=== PATIENT | male | born 1965 | race Caucasian/White ===

== ENCOUNTER 2024-07-03 17:29 | Emergency (ER) | payer OTHER, SELFPAY ==
[2024-07-03 17:34] VITALS: BP 165/111; PULSE 100; RESP 20; TEMP 36.6; O2SAT 100
--- NOTE | 2024-07-03 17:39 | ED.UPPEXIN ---
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 Laceration is to the palmar side of the base of thumb. States the site continues to bleed. Has a bandaid with neosporin and coban in place. Pt has been taking aspirin this week for dental pain. Denies decreased ROM, numbness, tingling or weakness to the thumb. Does not go to the doctor. Related Data Allergies Allergy/AdvReac Type Severity Reaction Status Date / Time No Known Allergies Allergy Unverified 02/06/15 14:09 Review of Systems Review of Systems: CONSTITUTIONAL: Denies body aches, fever, chills, or sweats. EYES: Denies visual changes, redness, or discharge. ENT: Denies rhinorrhea, congestion CARDIOVASCULAR: Denies chest pain, palpitations, or edema. RESPIRATORY: Denies cough or dyspnea. GASTROINTESTINAL: Denies abdominal pain, nausea, vomiting, or diarrhea. SKIN: right hand laceration MUSCULOSKELETAL: Denies back pain, joint pain, or myalgia. NEUROLOGIC: Denies headache, numbness, tingling, or weakness. [facility] Past Medical History Medical History (Updated 07/03/24 @ 18:33 by Marisabel Smith APRN) Patient denies medical problems Comments At time of signature, I have reviewed and agree with nursing past medical, surgical, social and family history unless otherwise noted. Please see nursing chart for further information. There is no relevant family history pertinent to the presenting complaint Exam Narrative: GENERAL: Well-appearing HEAD: Normocephalic, atraumatic. EYES: conjunctivae clear, and EOMI. ENT: Mucous membranes moist. Oropharynx without edema, erythema or lesions. NECK: Supple. CHEST: Even, unlabored SKIN: Warm, dry. right hand palmar surface of 1st metacarpal with approx 1cm irregular skin avulsion, superficial, active bleeding. CMS intact to hand, digits. NEURO: Alert and oriented x3. Course Course Emergency Course: Patient is aware of diagnosis, understands and agrees to treatment plan. Anticipatory guidance given. Patient agrees to follow-up as directed and is aware of reasons to seek care at the emergency department. Portions of this record may have been created with voice recognition software Level of Care: Express Care Visit Vital Signs Vital signs: Vital Signs Temperature 97.9 F 07/03/24 17:34 Pulse Rate 100 07/03/24 17:34 Respiratory Rate 20 07/03/24 17:34 Blood Pressure 165/111 H 07/03/24 17:34 Pulse Oximetry 100 07/03/24 17:34 Oxygen Delivery Room Air 07/03/24 17:34 Temperature 97.9 F 07/03/24 17:34 Pulse Rate 100 07/03/24 17:34 Respiratory Rate 20 07/03/24 17:34 Blood Pressure 165/111 H 07/03/24 17:34 Pulse Oximetry 07/03/24 17:34 Oxygen Delivery Room Air 07/03/24 17:34 Reviewed Procedures Laceration right hand: Date: 07/03/24 Size (cm): 1 Description: irregular Depth: simple, single layer ( avulsion) Pre-repair: irrigated ( sterile water and skintegrity) ====== Skin Level ====== ====== Subcutaneous Layer ====== ====== Muscle Layer ====== ====== Tendon Layer ====== Dressing: Wound cleansed. Surgicel required to stop the bleeding, provided educated at length on surgicel. Dressing applied. MDM - Extremity Injury (Upper) MDM Narrative Medical decision making narrative: Pt presented with right hand avulsion, no indication for suture placement as there is no flap available. pt had been taking aspirin. Surgicel applied to stop bleeding, dressing applied. Updated tetanus today. Rx abx. Discussed physical exam findings. Advised supportive measures and signs/symptoms t
[2024-07-03] MEDS: TETANUS,DIPHTHERIA,AC PERTUSSIS ADULT (0.5 ML) BOOSTRIX IM (17:59)
--- NOTE | 2024-07-03 18:35 | PC.NURSE ---
Dressing dry at discharge.
== END 2024-07-03 18:35 | disposition home or self-care (01) ==
PROVIDERS: Emergency Provider Nurse Practitioner Family
DX: S61.411A Laceration without foreign body of right hand, initial encounter (principal); X58.XXXA Exposure to other specified factors, initial encounter; Z23 Encounter for immunization
CPT/HCPCS: 90471; 90715; 99213; G0463